=== PATIENT | male | born 1980 | race Caucasian/White ===

== ENCOUNTER 2020-01-27 16:47 | Emergency (ER) | payer OTHER, SELFPAY ==
[2020-01-27 16:58] VITALS: BP 139/84; PULSE 76; RESP 18; TEMP 36.5; O2SAT 100
--- NOTE | 2020-01-27 17:24 | ED.GENADULT ---
HPI - General Adult General Chief complaint: Skin/Abscess/Foreign Body Stated complaint: cyst/shoulder Time Seen by Provider: 01/27/20 17:24 Source: patient Mode of arrival: ambulatory Limitations: no limitations History of Present Illness HPI narrative: 32-year-old male patient presents to the [facility] with complaints of a wound to the left shoulder. Patient states he has had a pea-sized cyst to his left shoulder for a couple years now but recently the last 2 days is gotten increasingly bigger with warmth, redness and states he feels like there is a lot of pressure to it. Denies any fevers. Denies any nausea, vomiting or diarrhea. Denies being a diabetic. Related Data Allergies Allergy/AdvReac Type Severity Reaction Status Date / Time No Known Allergies Allergy Verified 01/27/20 17:03 Review of Systems Review of Systems: Narrative: CONSTITUTIONAL: Denies fever, chills, or sweats. EYES: Denies visual changes, redness, or discharge. ENT: Denies rhinorrhea, congestion, sore throat, or otalgia. CARDIOVASCULAR: Denies chest pain, palpitations, or edema. RESPIRATORY: Denies cough or dyspnea. GASTROINTESTINAL: Denies abdominal pain, nausea, vomiting, or diarrhea. GENITOURINARY: Denies dysuria or hematuria. SKIN: Denies rash or itching. Positive wound to left shoulder x2 days. MUSCULOSKELETAL: Denies back pain, joint pain, or myalgia. NEUROLOGIC: Denies headache, numbness, or weakness. PSYCHIATRIC: Denies anxiety or depression. PMFSH Comments At the time of my signature I agree with nursing past medical history, surgical, social, and family history. There is no relevant family history pertinent to the presenting complaint. Exam Narrative: Exam Narrative: GENERAL: Well-appearing, well-nourished, and in no acute distress. HEAD: Normocephalic, atraumatic. EYES: PERRLA and EOMI. ENT: Nares clear, no rhinorrhea or epistaxis. Mucous membranes moist. NECK: Supple. No lymphadenopathy CHEST: Clear to auscultation. No respiratory distress. HEART: Regular rate and rhythm. No murmur heard. Normal peripheral pulses. ABDOMEN: Soft, nontender, nondistended, normal active bowel sounds. EXTREMITIES: Normal range of motion. No edema. SKIN: Warm, dry, no rash. Patient has approximately 3 to 4 cm round cystlike abscess to the left shoulder. With erythema, slight warmth present and tenderness on palpation. NEURO: No focal deficits. Alert and oriented x3. Course Vital Signs Vital signs: Vital Signs Temperature 36.5 C 01/27/20 16:58 Pulse Rate 76 01/27/20 16:58 Respiratory Rate 18 01/27/20 16:58 Blood Pressure 139/84 01/27/20 16:58 Pulse Oximetry 100 01/27/20 16:58 Temperature 36.5 C 01/27/20 16:58 Pulse Rate 76 01/27/20 16:58 Respiratory Rate 18 01/27/20 16:58 Blood Pressure 139/84 01/27/20 16:58 Pulse Oximetry 100 01/27/20 16:58 Vital signs reviewed. The patient has been informed that they may have pre-hypertension or Hypertension based on a BP reading in the department. I recommend that the patient call the primary care provider listed on their discharge instructions or a physician of their choice this week to arrange follow up for further evaluation of possible pre-hypertension or Hypertension Procedures Abscess I/D upper extremity: Date of Incision: 01/27/20 Time of Incision: 18:00 Side (if applicable): right Sedation/analgesia: none Local Anesthetic: lidocaine 1% Amount of anesthesia used (mL): 4 Technique: incised with #11 blade Irrigation: Yes Packing used?: iodoform I&D Results: Pus Abcess I&D Additional Comments: The procedure was explained and verbal consent is obtained. The wound was anesthetized with 4ml of 1% lidocaine with good anesthesia. Sterile drape and prep are done. The fluctuant center was incised with #11 blade scalpel. A large amount of pus that was removed. The wound was probed forl oculated area and irrigated
== END 2020-01-27 18:30 | disposition home or self-care (01) ==
PROVIDERS: Emergency Provider Nurse Practitioner Family
DX: L02.414 Cutaneous abscess of left upper limb (principal); R03.0 Elevated blood-pressure reading, without diagnosis of hypertension
CPT/HCPCS: 10061; 87070; 87075; 87205; 99213; G0463